=== PATIENT | male | born 1995 | race Caucasian/White ===

== ENCOUNTER 2020-05-12 19:14 | Emergency (ER) | payer MEDICAID ==
[~2020-05-12] VITALS: Ht 157.5 cm; Wt 55.0 kg
[2020-05-12] MEDS ORDERED: LIDOCAINE 5% PATCH TOP SCH (19:45)
[2020-05-12] MEDS ORDERED: IBUPROFEN 400MG TABLET PO ONE (19:45)
[2020-05-12] MEDS ORDERED: ACETAMINOPHEN 325MG TABLET PO ONE (19:45)
[2020-05-12] MEDS ORDERED: CYCL25PO21 MT (20:43)
[2020-05-12] MEDS ORDERED: LIDO700A15 TP (20:43)
[2020-05-12 20:50] LABS: *AMPHETAMINES SCREEN URINE NEGATIVE (NEGATIVE); *BARBITURATES SCREEN URINE NEGATIVE (NEGATIVE); *BENZODIAZEPINES SCREEN URINE NEGATIVE (NEGATIVE); *COCAINE SCREEN URINE NEGATIVE (NEGATIVE)
[2020-05-12 20:51] LABS: CANNABINOID URINE SCREEN NEGATIVE (NEGATIVE); METHADONE URINE SCREEN NEGATIVE (NEGATIVE); OPIATES URINE SCREEN NEGATIVE (NEGATIVE); PHENCYCLIDINE URINE SCREEN NEGATIVE (NEGATIVE)
[2020-05-12 21:00] VITALS: BP 106/73
== END 2020-05-12 21:20 | disposition home or self-care (01) ==
LOC: ER 19:14
DX: R07.89 Other chest pain (principal); Z00.00 Encounter for general adult medical examination without abnormal findings; Z90.49 Acquired absence of other specified parts of digestive tract
CPT/HCPCS: 71045; 80305; 93005; 99285